=== PATIENT | female | born 1990 | race Caucasian/White ===

== ENCOUNTER 2020-04-04 07:20 | Inpatient (IN) | payer BC ==
[2020-04-04 09:00] LABS: BASO % 0.4 % (0-2.0); EOS % 4.6 % (0-4.5); HEMATOCRIT 34.5 % (32.4-45.2); HEMOGLOBIN 11.8 GM/dL (10.7-15.3); LYMPH % 21.1 % (8-40); MCH 31.6 pg (25.7-33.7); MCHC 34.3 g/dl (32.0-36.0); MEAN CELL VOLUME 92.3 fl (80-96); MEAN PLT VOLUME 10.5 fl (7.5-11.1); MONO % 8.1 % (3.8-10.2); NEUT % 65.8 % (42.8-82.8); PLATELET COUNT 130 K/MM3 (134-434); RBC 3.74 M/mm3 (3.60-5.2); RDW 13.3 % (11.6-15.6); WHITE BLOOD COUNT 9.4 K/mm3 (4.0-10.0)
[2020-04-04] MEDS ORDERED: DEXTROSE 5%-LACTATED RINGERS 1,000 ML IV SCH (09:15)
[2020-04-04] MEDS ORDERED: ELECTROLYTE-148 SOLN 1,000 ML IV SCH (09:15)
[2020-04-04] MEDS ORDERED: OXYTOCIN 30 UNITS in 0.9% NS 30 UNIT/500 ML INFUS.BAG IVPB SCH (09:15)
[2020-04-04 09:16] VITALS: BMI 37.4
[2020-04-04 09:19] LABS: INR 0.92 (0.83-1.09); PROTHROMBIN TIME (PATIENT) 11.4 SEC (9.7-13.0)
[2020-04-04 09:22] LABS: ACTIVATED PTT 27.1 SECONDS (25.2-36.5)
[2020-04-04 09:28] LABS: BLOOD UREA NITROGEN 14.5 mg/dL (7-18); CALCIUM 8.9 mg/dL (8.5-10.1)
[2020-04-04 09:31] LABS: CREATININE 0.7 mg/dL (0.55-1.3)
[2020-04-04] MEDS ORDERED: OXYTOCIN 30 UNITS in 0.9% NS 30 UNIT/500 ML INFUS.BAG IVPB ONE (09:50)
[2020-04-04] MEDS ORDERED: BUTORPHANOL TARTRATE 2 MG/ML VIAL ONE (19:46)
[2020-04-04] MEDS ORDERED: PROMETHAZINE HCL 25 MG/1 ML VIAL ONE (19:46)
[2020-04-04] MEDS ORDERED: PROMETHAZINE HCL 25 MG/1 ML VIAL IVPB ONE (19:55)
[2020-04-04] MEDS ORDERED: BUTORPHANOL TARTRATE 1 MG/ML VIAL IVPB ONE (19:55)
[2020-04-04] MEDS ORDERED: OXYTOCIN 20 UNITS in 0.9% NS 20 UNIT/1,000 ML INFUS.BAG IV ONE (20:37)
[2020-04-04] MEDS ORDERED: BISACODYL 10 MG SUPP.RECT RC PRN (21:37)
[2020-04-04] MEDS ORDERED: BENZOCAINE 20% 57 GM BOTTLE TP PRN (21:37)
[2020-04-04] MEDS ORDERED: ACETAMINOPHEN 325 MG TABLET (FP) PO PRN (21:37)
[2020-04-04] MEDS ORDERED: METHYLERGONOVINE MALEATE 0.2 MG/1 ML AMP IM PRN (21:37)
[2020-04-04] MEDS ORDERED: BENZOCAINE 28 GM HEMORRHOIDAL OINTMENT TP PRN (21:37)
[2020-04-04] MEDS ORDERED: IBUPROFEN 600 MG TABLET (FP) PO PRN (21:37)
[2020-04-04] MEDS ORDERED: WITCH HAZEL 50% (TUCKS) 40 PAD/JAR PAD TP PRN (21:37)
[2020-04-04] MEDS ORDERED: OXYTOCIN 20 UNITS in 0.9% NS 20 UNIT/1,000 ML INFUS.BAG IV SCH (21:45)
[2020-04-05 08:34] LABS: BASO % 0.3 % (0-2.0); EOS % 1.1 % (0-4.5); HEMOGLOBIN 10.1 GM/dL (10.7-15.3); LYMPH % 11.1 % (8-40); MCH 31.3 pg (25.7-33.7); MCHC 33.7 g/dl (32.0-36.0); MEAN CELL VOLUME 92.8 fl (80-96); MEAN PLT VOLUME 10.9 fl (7.5-11.1); MONO % 9.6 % (3.8-10.2); NEUT % 77.9 % (42.8-82.8); PLATELET COUNT 130 K/MM3 (134-434); RBC 3.23 M/mm3 (3.60-5.2); RDW 13.3 % (11.6-15.6); WHITE BLOOD COUNT 12.2 K/mm3 (4.0-10.0)
[2020-04-05] MEDS: PRENATAL VITAMINS W/ FOLIC ACID TABLET (FP) PO SCH (10:51)
[2020-04-05] MEDS ORDERED: SENNOSIDES/DOCUSATE COMBO (SENNA PLUS) TABLET (UD) PO PRN (22:00)
[2020-04-06] MEDS: PRENATAL VITAMINS W/ FOLIC ACID TABLET (FP) PO SCH (10:28)
[2020-04-06 12:01] VITALS: BP 140/90; PULSE 107; TEMP 98.2
== END 2020-04-06 11:50 | disposition home or self-care (01) | DRG 807 ==
LOC: JLDR 07:20 → J3W 22:53
PROVIDERS: ADMIT Obstetrics & Gynecology; ATTEND Obstetrics & Gynecology
PROC: 0HQ9XZZ Repair Perineum Skin, External Approach (ICD-10-PCS; principal; 2020-04-04)
PROC: 10E0XZZ Delivery of Products of Conception, External Approach (ICD-10-PCS; 2020-04-04)
DX: O48.0 Post-term pregnancy (principal); Z37.0 Single live birth; O70.0 First degree perineal laceration during delivery; O99.214 Obesity complicating childbirth; Z3A.40 40 weeks gestation of pregnancy
CPT/HCPCS: 36415; 59409; 80048; 85025; 85610; 85730; 86780; 86850; 86900; 86901

== ENCOUNTER 2022-09-29 23:45 | Inpatient (IN) | payer BC ==
[2022-09-30 01:55] LABS: BASO % 0.2 % (0-2.0); HEMOGLOBIN 11.5 GM/dL (10.7-15.3); LYMPH % 19.5 % (8-40); MCH 30.9 pg (25.7-33.7); MEAN CELL VOLUME 88.4 fl (80-96); MEAN PLT VOLUME 10.1 fl (7.5-11.1); MONO % 10.1 % (3.8-10.2); NEUT % 68.2 % (42.8-82.8); PLATELET COUNT 140 10^3/uL (134-434); RBC 3.73 M/mm3 (3.60-5.2); RDW 13.4 % (11.6-15.6); WHITE BLOOD COUNT 9.2 K/mm3 (4.0-10.0)
[2022-09-30 02:02] LABS: INR 0.98 (0.83-1.09); PROTHROMBIN TIME (PATIENT) 11.4 SEC (9.7-13.0)
[2022-09-30 02:04] LABS: ACTIVATED PTT 27.1 SECONDS (25.2-36.5)
[2022-09-30 02:21] VITALS: BMI 39.6
[2022-09-30 02:21] LABS: POTASSIUM 4.2 mmol/L (3.5-5.1)
[2022-09-30 02:23] LABS: BLOOD UREA NITROGEN 9.8 mg/dL (7-18)
[2022-09-30 02:26] LABS: CALCIUM 8.3 mg/dL (8.5-10.1); CREATININE 0.6 mg/dL (0.55-1.3)
[2022-09-30] MEDS ORDERED: ELECTROLYTE-148 SOLN 1,000 ML IV SCH ×2 (03:00→06:45)
[2022-09-30] MEDS ORDERED: PROMETHAZINE HCL 25 MG/1 ML VIAL IVPB ONE (03:45)
[2022-09-30] MEDS ORDERED: BUTORPHANOL TARTRATE 1 MG/ML VIAL IVPB ONE (03:45)
[2022-09-30] MEDS ORDERED: BUTORPHANOL TARTRATE 1 MG/ML VIAL ONE (03:50)
[2022-09-30] MEDS ORDERED: PROMETHAZINE HCL 25 MG/1 ML VIAL ONE (03:50)
[2022-09-30] MEDS ORDERED: LIDOCAINE HCL 1% PRESERVATIVE FREE - 30ML VIAL ONE (06:09)
[2022-09-30] MEDS ORDERED: OXYTOCIN 20 UNITS in 0.9% NS 20 UNIT/1,000 ML INFUS.BAG IV ONE ×2 (06:09→07:43)
[2022-09-30] MEDS ORDERED: BENZOCAINE 20% 57 GM BOTTLE TP PRN (06:43)
[2022-09-30] MEDS ORDERED: ACETAMINOPHEN 325 MG TABLET (FP) PO PRN (06:43)
[2022-09-30] MEDS ORDERED: BENZOCAINE 28 GM HEMORRHOIDAL OINTMENT TP PRN (06:43)
[2022-09-30] MEDS ORDERED: WITCH HAZEL 50% (TUCKS) 40 PAD/JAR PAD TP PRN (06:43)
[2022-09-30] MEDS ORDERED: BISACODYL 10 MG SUPP.RECT RC PRN (06:43)
[2022-09-30] MEDS ORDERED: METHYLERGONOVINE MALEATE 0.2 MG/1 ML AMP IM PRN (06:43)
[2022-09-30] MEDS ORDERED: OXYTOCIN 20 UNITS in 0.9% NS 20 UNIT/1,000 ML INFUS.BAG IV SCH (06:45)
[2022-09-30 07:35] LABS: CORD BASE EXCESS -3.6 mmol/L (0-2); CORD HCO3 20.4 mmHg (20-29); CORD PCO2 34.6 mmHg (30-78); CORD pH 7.388 (7.14-7.44)
[2022-09-30 07:39] LABS: CORD HCO3 23.4 mmHg (20-29); CORD PCO2 41.8 mmHg (30-78); CORD pH 7.365 (7.14-7.44)
[2022-10-01 08:18] LABS: BASO % 0.4 % (0-2.0); EOS % 2.1 % (0-4.5); HEMATOCRIT 32.3 % (32.4-45.2); HEMOGLOBIN 10.9 GM/dL (10.7-15.3); LYMPH % 26.6 % (8-40); MCH 30.7 pg (25.7-33.7); MCHC 33.9 g/dl (32.0-36.0); MEAN CELL VOLUME 90.8 fl (80-96); MONO % 7.3 % (3.8-10.2); NEUT % 63.6 % (42.8-82.8); PLATELET COUNT 129 10^3/uL (134-434); RBC 3.55 M/mm3 (3.60-5.2); RDW 13.4 % (11.6-15.6); WHITE BLOOD COUNT 8.6 K/mm3 (4.0-10.0)
[2022-10-01] MEDS: IBUPROFEN 600 MG TABLET (FP) PO PRN (09:36)
[2022-10-01] MEDS ORDERED: SENNOSIDES/DOCUSATE COMBO (SENNA PLUS) TABLET (UD) PO PRN (22:00)
[2022-10-02] MEDS: IBUPROFEN 600 MG TABLET (FP) PO PRN (02:31)
[2022-10-02 09:19] VITALS: BP 113/80; PULSE 101; RESP 20; TEMP 98.2
== END 2022-10-02 11:25 | disposition home or self-care (01) | DRG 807 ==
LOC: JDEL 23:45 → JLDR 23:55 → J3W 09-30 09:00
PROVIDERS: ADMIT Obstetrics & Gynecology; ATTEND Obstetrics & Gynecology
PROC: 10E0XZZ Delivery of Products of Conception, External Approach (ICD-10-PCS; principal; 2022-09-30)
DX: O99.214 Obesity complicating childbirth (principal); Z37.0 Single live birth; E66.9 Obesity, unspecified; O99.02 Anemia complicating childbirth; D64.9 Anemia, unspecified; Z3A.38 38 weeks gestation of pregnancy
CPT/HCPCS: 36415; 36600; 80048; 82803; 85025; 85610; 85730; 86780; 86850; 86900; 86901